=== PATIENT | female | born 1970 | race Caucasian/White ===

== ENCOUNTER 2022-08-31 16:41 | Inpatient (IN) | payer OTHER ==
[2022-08-31] MEDS ORDERED: SODIUM CHLORIDE 1,000 ML IV STA (20:11)
[2022-08-31 21:40] LABS: BASO % 0.3 % (0-2.0); HEMATOCRIT 39.8 % (32.4-45.2); HEMOGLOBIN 13.4 GM/dL (10.7-15.3); LYMPH % 17.3 % (8-40); MCH 29.1 pg (25.7-33.7); MCHC 33.6 g/dl (32.0-36.0); MEAN CELL VOLUME 86.7 fl (80-96); MEAN PLT VOLUME 7.8 fl (7.5-11.1); MONO % 10.1 % (3.8-10.2); NEUT % 72.3 % (42.8-82.8); PLATELET COUNT 273 10^3/uL (134-434); RBC 4.59 M/mm3 (3.60-5.2); RDW 13.7 % (11.6-15.6); WHITE BLOOD COUNT 12.2 K/mm3 (4.0-10.0)
[2022-08-31 21:43] LABS: VENOUS BASE EXCESS -2.2 mmol/L (-2-2); VENOUS O2 SATURATION 92.5 % (70-80); VENOUS PCO2 33.7 mmHg (38-52); VENOUS PH 7.422 (7.310-7.410)
[2022-08-31 21:49] LABS: INR 1.24 (0.83-1.09); PROTHROMBIN TIME (PATIENT) 14.3 SEC (9.7-13.0)
[2022-08-31 21:52] LABS: ACTIVATED PTT 30.2 SECONDS (25.2-36.5)
[2022-08-31 22:01] LABS: CALCIUM 10.2 mg/dL (8.5-10.1)
[2022-08-31 22:02] LABS: ALBUMIN 4.3 g/dl (3.4-5.0); BLOOD UREA NITROGEN 31.7 mg/dL (7-18)
[2022-08-31 22:05] LABS: CREATININE 1.3 mg/dL (0.55-1.3)
[2022-08-31 22:06] LABS: BILIRUBIN,TOTAL 0.4 mg/dL (0.2-1); TOT PROT 8.4 g/dl (6.4-8.2)
[2022-08-31 22:22] LABS: EPI CELLS 25 /uL (0-25.1); HYALINE CASTS 1 /uL (0-3.1); PH,URINE 5.5 (5.0-8.0); URINE APPEARANCE CLEAR; URINE BACTERIA 112 /uL (0-1359); URINE BILIRUBIN NEGATIVE (NEGATIVE); URINE COLOR YELLOW; URINE GLUCOSE (UA) NEGATIVE (NEGATIVE); URINE KETONE TRACE (NEGATIVE); URINE LEUK ESTERASE TRACE (NEGATIVE); URINE NITRITE NEGATIVE (NEGATIVE); URINE PROTEIN 1+ (NEGATIVE); URINE RBC 15 /uL (0-23.9); URINE WBC 30 /uL (0-25.8)
[2022-09-01] MEDS ORDERED: SODIUM CHLORIDE 1,000 ML IV SCH (00:45)
[2022-09-01] MEDS: QUEtiapine FUMARATE 50 MG TABLET PO SCH ×3 (06:52→21:27)
[2022-09-01] MEDS: clonazePAM 0.25 MG ODT TABLETS SL SCH ×3 (06:52→21:26)
[2022-09-01] MEDS: CEFTRIAXONE 1 GM in DEXTROSE 5%-WATER - 50 ML IVPB SCH ×2 (08:17→09:58)
[2022-09-01 08:36] VITALS: BMI 30.4
[2022-09-01 09:12] LABS: BASO % 0.3 % (0-2.0); EOS % 0.3 % (0-4.5); HEMATOCRIT 37.5 % (32.4-45.2); LYMPH % 23.8 % (8-40); MCH 28.1 pg (25.7-33.7); MEAN CELL VOLUME 87.6 fl (80-96); MEAN PLT VOLUME 8.3 fl (7.5-11.1); MONO % 11.6 % (3.8-10.2); PLATELET COUNT 253 10^3/uL (134-434); RBC 4.28 M/mm3 (3.60-5.2); RDW 14.3 % (11.6-15.6); WHITE BLOOD COUNT 11.2 K/mm3 (4.0-10.0)
[2022-09-01 09:31] LABS: CALCIUM 9.2 mg/dL (8.5-10.1)
[2022-09-01 09:34] LABS: BLOOD UREA NITROGEN 28.2 mg/dL (7-18)
[2022-09-01 09:35] LABS: MAGNESIUM 2.3 mg/dL (1.8-2.4)
[2022-09-01 09:37] LABS: PHOSPHOROUS 3.4 mg/dL (2.5-4.9)
[2022-09-01] MEDS: LITHIUM CARBONATE 450 MG TABLET.ER PO SCH (09:54)
[2022-09-01] MEDS: DIVALPROEX NA *ER* EXTEND REL 500 MG TABLET.SA (FP) PO SCH ×2 (09:54→15:03)
[2022-09-01] MEDS: MULTIVITAMINS (DAILY MVI) TABLET (FP) PO SCH (09:54)
[2022-09-01] MEDS: ENOXAPARIN NA (PORCINE) 40 MG/0.4 ML DISP.SYRIN SQ SCH (09:58)
[2022-09-01] MEDS ORDERED: LEVOTHYROXINE NA 100 MCG TABLET (FP) PO SCH (10:00)
[2022-09-01] MEDS: SODIUM CHLORIDE 1,000 ML IV SCH (12:36)
[2022-09-01] MEDS ORDERED: DOCUSATE SODIUM 100 MG CAPSULE (FP) PO ONE (14:38)
[2022-09-01] MEDS: SENNOSIDES 8.6MG TABLET (FP) PO SCH (21:26)
[2022-09-01] MEDS ORDERED: QUEtiapine FUMARATE 50 MG TABLET PO SCH (22:00)
[2022-09-02] MEDS: clonazePAM 0.25 MG ODT TABLETS SL SCH ×3 (05:15→21:59)
[2022-09-02] MEDS: QUEtiapine FUMARATE 50 MG TABLET PO SCH ×3 (05:16→21:59)
[2022-09-02 09:25] LABS: BASO % 0.6 % (0-2.0); EOS % 1.2 % (0-4.5); HEMATOCRIT 36.3 % (32.4-45.2); LYMPH % 31.6 % (8-40); MCH 29.2 pg (25.7-33.7); MCHC 33.2 g/dl (32.0-36.0); MONO % 8.2 % (3.8-10.2); NEUT % 58.4 % (42.8-82.8); PLATELET COUNT 238 10^3/uL (134-434); RBC 4.12 M/mm3 (3.60-5.2); RDW 13.7 % (11.6-15.6); WHITE BLOOD COUNT 9.3 K/mm3 (4.0-10.0)
[2022-09-02] MEDS: LEVOTHYROXINE NA 100 MCG TABLET (FP) PO SCH (09:43)
[2022-09-02] MEDS: ENOXAPARIN NA (PORCINE) 40 MG/0.4 ML DISP.SYRIN SQ SCH (09:43)
[2022-09-02] MEDS: DIVALPROEX NA *ER* EXTEND REL 500 MG TABLET.SA (FP) PO SCH (09:43)
[2022-09-02] MEDS: MULTIVITAMINS (DAILY MVI) TABLET (FP) PO SCH (09:43)
[2022-09-02] MEDS: LITHIUM CARBONATE 450 MG TABLET.ER PO SCH (09:44)
[2022-09-02 09:53] LABS: ALBUMIN 3.5 g/dl (3.4-5.0); BLOOD UREA NITROGEN 23.6 mg/dL (7-18); CALCIUM 9.2 mg/dL (8.5-10.1); MAGNESIUM 2.2 mg/dL (1.8-2.4)
[2022-09-02 09:56] LABS: CREATININE 0.9 mg/dL (0.55-1.3); PHOSPHOROUS 3.2 mg/dL (2.5-4.9)
[2022-09-02 09:58] LABS: BILIRUBIN,TOTAL 0.3 mg/dL (0.2-1)
[2022-09-02] MEDS: SODIUM CHLORIDE 1,000 ML IV SCH (12:16)
[2022-09-02] MEDS: CEFTRIAXONE 1 GM in DEXTROSE 5%-WATER - 50 ML IVPB SCH (12:17)
[2022-09-02] MEDS: MOMETASONE FUROATE 15 GM TP SCH (16:46)
[2022-09-02] MEDS: PATIENT'S OWN MEDICATION (NON-FORMULARY) (Calcipotriene 0.005% Top Crm 60 GM Tube) TP SCH (16:46)
[2022-09-02] MEDS: SODIUM CHLORIDE 0.45% 1,000 ML IV SCH (19:09)
[2022-09-02] MEDS: SENNOSIDES 8.6MG TABLET (FP) PO SCH (21:59)
[2022-09-03] MEDS: clonazePAM 0.25 MG ODT TABLETS SL SCH ×3 (05:33→21:43)
[2022-09-03] MEDS: QUEtiapine FUMARATE 50 MG TABLET PO SCH ×3 (05:34→21:44)
[2022-09-03] MEDS: LEVOTHYROXINE NA 100 MCG TABLET (FP) PO SCH (06:31)
[2022-09-03 09:26] LABS: BASO % 0.3 % (0-2.0); EOS % 1.4 % (0-4.5); HEMATOCRIT 37.2 % (32.4-45.2); HEMOGLOBIN 12.1 GM/dL (10.7-15.3); LYMPH % 28.5 % (8-40); MCH 28.4 pg (25.7-33.7); MCHC 32.5 g/dl (32.0-36.0); MEAN CELL VOLUME 87.5 fl (80-96); MONO % 9.2 % (3.8-10.2); NEUT % 60.6 % (42.8-82.8); PLATELET COUNT 258 10^3/uL (134-434); RBC 4.25 M/mm3 (3.60-5.2); RDW 13.6 % (11.6-15.6); WHITE BLOOD COUNT 8.3 K/mm3 (4.0-10.0)
[2022-09-03 09:52] LABS: ALBUMIN 3.3 g/dl (3.4-5.0); BLOOD UREA NITROGEN 18.4 mg/dL (7-18); CALCIUM 8.9 mg/dL (8.5-10.1); MAGNESIUM 2.1 mg/dL (1.8-2.4)
[2022-09-03 09:55] LABS: CREATININE 0.9 mg/dL (0.55-1.3); PHOSPHOROUS 4.5 mg/dL (2.5-4.9)
[2022-09-03 09:57] LABS: BILIRUBIN,TOTAL 0.4 mg/dL (0.2-1); TOT PROT 6.9 g/dl (6.4-8.2)
[2022-09-03] MEDS: CEFTRIAXONE 1 GM in DEXTROSE 5%-WATER - 50 ML IVPB SCH (10:02)
[2022-09-03] MEDS: DIVALPROEX NA *ER* EXTEND REL 500 MG TABLET.SA (FP) PO SCH ×2 (10:02→12:12)
[2022-09-03] MEDS: ENOXAPARIN NA (PORCINE) 40 MG/0.4 ML DISP.SYRIN SQ SCH ×2 (10:02→12:13)
[2022-09-03] MEDS: MULTIVITAMINS (DAILY MVI) TABLET (FP) PO SCH (10:02)
[2022-09-03] MEDS: LITHIUM CARBONATE 450 MG TABLET.ER PO SCH ×2 (10:03→12:13)
[2022-09-03] MEDS: SODIUM CHLORIDE 0.45% 1,000 ML IV SCH (19:00)
[2022-09-03] MEDS: SENNOSIDES 8.6MG TABLET (FP) PO SCH (21:43)
[2022-09-04] MEDS: clonazePAM 0.25 MG ODT TABLETS SL SCH ×3 (05:59→21:59)
[2022-09-04] MEDS: QUEtiapine FUMARATE 50 MG TABLET PO SCH ×3 (06:00→22:00)
[2022-09-04] MEDS: LEVOTHYROXINE NA 100 MCG TABLET (FP) PO SCH (06:00)
[2022-09-04 07:39] LABS: CALCIUM 9.3 mg/dL (8.5-10.1)
[2022-09-04 07:40] LABS: ALBUMIN 3.5 g/dl (3.4-5.0); BLOOD UREA NITROGEN 20.9 mg/dL (7-18); MAGNESIUM 2.3 mg/dL (1.8-2.4)
[2022-09-04 07:42] LABS: BASO % 0.3 % (0-2.0); CREATININE 0.9 mg/dL (0.55-1.3); EOS % 1.7 % (0-4.5); HEMATOCRIT 37.9 % (32.4-45.2); HEMOGLOBIN 12.5 GM/dL (10.7-15.3); LYMPH % 22.6 % (8-40); MCH 28.7 pg (25.7-33.7); MCHC 33.1 g/dl (32.0-36.0); MEAN CELL VOLUME 86.8 fl (80-96); MEAN PLT VOLUME 8.1 fl (7.5-11.1); MONO % 8.4 % (3.8-10.2); PHOSPHOROUS 4.6 mg/dL (2.5-4.9); PLATELET COUNT 275 10^3/uL (134-434); RBC 4.37 M/mm3 (3.60-5.2); RDW 13.9 % (11.6-15.6); WHITE BLOOD COUNT 8.3 K/mm3 (4.0-10.0)
[2022-09-04 07:44] LABS: TOT PROT 7.4 g/dl (6.4-8.2)
[2022-09-04 07:45] LABS: BILIRUBIN,TOTAL 0.3 mg/dL (0.2-1)
[2022-09-04] MEDS: ENOXAPARIN NA (PORCINE) 40 MG/0.4 ML DISP.SYRIN SQ SCH (10:05)
[2022-09-04] MEDS: DIVALPROEX NA *ER* EXTEND REL 500 MG TABLET.SA (FP) PO SCH (10:05)
[2022-09-04] MEDS: LITHIUM CARBONATE 450 MG TABLET.ER PO SCH (10:05)
[2022-09-04] MEDS: MULTIVITAMINS (DAILY MVI) TABLET (FP) PO SCH (10:06)
[2022-09-04] MEDS: SENNOSIDES 8.6MG TABLET (FP) PO SCH (21:59)
[2022-09-04] MEDS: SODIUM CHLORIDE 0.45% 1,000 ML IV SCH (21:59)
[2022-09-05] MEDS: QUEtiapine FUMARATE 50 MG TABLET PO SCH ×4 (05:45→22:15)
[2022-09-05] MEDS: clonazePAM 0.25 MG ODT TABLETS SL SCH ×4 (05:49→22:15)
[2022-09-05] MEDS: LEVOTHYROXINE NA 100 MCG TABLET (FP) PO SCH (06:00)
[2022-09-05 08:48] LABS: BASO % 0.5 % (0-2.0); EOS % 2.1 % (0-4.5); HEMATOCRIT 37.8 % (32.4-45.2); HEMOGLOBIN 12.6 GM/dL (10.7-15.3); LYMPH % 21.4 % (8-40); MCH 29.3 pg (25.7-33.7); MCHC 33.5 g/dl (32.0-36.0); MEAN CELL VOLUME 87.5 fl (80-96); MEAN PLT VOLUME 8.1 fl (7.5-11.1); MONO % 7.8 % (3.8-10.2); NEUT % 68.2 % (42.8-82.8); PLATELET COUNT 219 10^3/uL (134-434); RBC 4.32 M/mm3 (3.60-5.2); RDW 13.3 % (11.6-15.6); WHITE BLOOD COUNT 8.5 K/mm3 (4.0-10.0)
[2022-09-05 09:10] LABS: ALBUMIN 3.6 g/dl (3.4-5.0); BLOOD UREA NITROGEN 24.6 mg/dL (7-18); CALCIUM 9.2 mg/dL (8.5-10.1); MAGNESIUM 2.3 mg/dL (1.8-2.4)
[2022-09-05 09:13] LABS: CREATININE 0.8 mg/dL (0.55-1.3); PHOSPHOROUS 4.2 mg/dL (2.5-4.9)
[2022-09-05 09:15] LABS: BILIRUBIN,TOTAL 0.2 mg/dL (0.2-1); TOT PROT 7.6 g/dl (6.4-8.2)
[2022-09-05] MEDS: DIVALPROEX NA *ER* EXTEND REL 500 MG TABLET.SA (FP) PO SCH ×3 (09:38→22:15)
[2022-09-05] MEDS: LITHIUM CARBONATE 450 MG TABLET.ER PO SCH (09:38)
[2022-09-05] MEDS: MULTIVITAMINS (DAILY MVI) TABLET (FP) PO SCH (09:38)
[2022-09-05] MEDS: ENOXAPARIN NA (PORCINE) 40 MG/0.4 ML DISP.SYRIN SQ SCH (09:39)
[2022-09-05] MEDS: SENNOSIDES 8.6MG TABLET (FP) PO SCH (21:45)
[2022-09-06] MEDS: LEVOTHYROXINE NA 100 MCG TABLET (FP) PO SCH (06:21)
[2022-09-06] MEDS: QUEtiapine FUMARATE 50 MG TABLET PO SCH ×3 (06:21→21:26)
[2022-09-06] MEDS: clonazePAM 0.25 MG ODT TABLETS SL SCH ×4 (06:21→21:29)
[2022-09-06] MEDS: ENOXAPARIN NA (PORCINE) 40 MG/0.4 ML DISP.SYRIN SQ SCH (09:43)
[2022-09-06] MEDS: LITHIUM CARBONATE 450 MG TABLET.ER PO SCH (10:57)
[2022-09-06] MEDS: MULTIVITAMINS (DAILY MVI) TABLET (FP) PO SCH (10:57)
[2022-09-06] MEDS ORDERED: clonazePAM 0.25 MG ODT TABLETS SL SCH (12:00)
[2022-09-06] MEDS: SENNOSIDES 8.6MG TABLET (FP) PO SCH (21:25)
[2022-09-06] MEDS ORDERED: DIVALPROEX NA *ER* EXTEND REL 500 MG TABLET.SA (FP) PO SCH (22:00)
[2022-09-07] MEDS: QUEtiapine FUMARATE 50 MG TABLET PO SCH ×2 (07:04→14:53)
[2022-09-07] MEDS: LEVOTHYROXINE NA 100 MCG TABLET (FP) PO SCH (07:04)
[2022-09-07] MEDS: clonazePAM 0.25 MG ODT TABLETS SL SCH ×3 (07:04→14:54)
[2022-09-07] MEDS: ENOXAPARIN NA (PORCINE) 40 MG/0.4 ML DISP.SYRIN SQ SCH (09:15)
[2022-09-07] MEDS: MULTIVITAMINS (DAILY MVI) TABLET (FP) PO SCH (09:15)
[2022-09-07] MEDS: LITHIUM CARBONATE 450 MG TABLET.ER PO SCH (09:15)
[2022-09-07 15:20] VITALS: BP 116/75; PULSE 100; RESP 18; TEMP 97.7
== END 2022-09-07 16:30 | disposition home or self-care (01) | DRG 640 ==
LOC: JER 16:41 → JERBED 22:06 → J7W 09-01 03:13
PROVIDERS: ADMIT Internal Medicine; ATTEND Internal Medicine
DX: E86.0 Dehydration (principal); G93.41 Metabolic encephalopathy; N17.9 Acute kidney failure, unspecified; N39.0 Urinary tract infection, site not specified; E87.0 Hyperosmolality and hypernatremia; E03.9 Hypothyroidism, unspecified; L40.9 Psoriasis, unspecified; R62.7 Adult failure to thrive; F31.9 Bipolar disorder, unspecified; Z87.440 Personal history of urinary (tract) infections; E83.52 Hypercalcemia; R94.31 Abnormal electrocardiogram [ECG] [EKG]; R33.9 Retention of urine, unspecified; D25.9 Leiomyoma of uterus, unspecified; F79 Unspecified intellectual disabilities
CPT/HCPCS: 0241U-QW; 36415; 71045-TC-FY; 74176-TC; 80048; 80053; 80178; 81003; 82803; 83605; 83735; 84100; 85025; 85610; 85730; 86850; 86900; 86901; 87040; 87086; 87633; 93005; 93010; 99285-25

== ENCOUNTER 2022-09-13 11:26 | Inpatient (IN) | payer OTHER ==
[2022-09-13 14:00] LABS: BASO % 0.2 % (0-2.0); EOS % 2.1 % (0-4.5); HEMATOCRIT 37.5 % (32.4-45.2); HEMOGLOBIN 12.7 GM/dL (10.7-15.3); LYMPH % 30.6 % (8-40); MCH 29.1 pg (25.7-33.7); MCHC 33.8 g/dl (32.0-36.0); MEAN CELL VOLUME 86.2 fl (80-96); MEAN PLT VOLUME 8.3 fl (7.5-11.1); MONO % 8.3 % (3.8-10.2); NEUT % 58.8 % (42.8-82.8); PLATELET COUNT 256 10^3/uL (134-434); RBC 4.35 M/mm3 (3.60-5.2); RDW 13.5 % (11.6-15.6); WHITE BLOOD COUNT 10.4 K/mm3 (4.0-10.0)
[2022-09-13 14:10] LABS: INR 1.21 (0.83-1.09)
[2022-09-13 14:20] LABS: BLOOD UREA NITROGEN 14.8 mg/dL (7-18); CALCIUM 9.3 mg/dL (8.5-10.1); MAGNESIUM 2.3 mg/dL (1.8-2.4)
[2022-09-13 14:20] LABS: EPI CELLS 8 /uL (0-25.1); HYALINE CASTS 2 /uL (0-3.1); PH,URINE 5.5 (5.0-8.0); URINE APPEARANCE CLEAR; URINE BACTERIA 2 /uL (0-1359); URINE BILIRUBIN NEGATIVE (NEGATIVE); URINE COLOR YELLOW; URINE GLUCOSE (UA) NEGATIVE (NEGATIVE); URINE KETONE NEGATIVE (NEGATIVE); URINE LEUK ESTERASE NEGATIVE (NEGATIVE); URINE NITRITE NEGATIVE (NEGATIVE); URINE PROTEIN 1+ (NEGATIVE); URINE RBC 33 /uL (0-23.9); URINE WBC 12 /uL (0-25.8)
[2022-09-13 14:21] LABS: ALBUMIN 3.9 g/dl (3.4-5.0)
[2022-09-13 14:23] LABS: CREATININE 0.9 mg/dL (0.55-1.3); PHOSPHOROUS 3.9 mg/dL (2.5-4.9)
[2022-09-13 14:25] LABS: BILIRUBIN,TOTAL 0.4 mg/dL (0.2-1); TOT PROT 7.9 g/dl (6.4-8.2)
[2022-09-13] MEDS ORDERED: ENOXAPARIN NA (PORCINE) 60 MG/0.6 ML DISP.SYRIN SQ ONE ×2 (19:30→20:11)
[2022-09-14] MEDS ORDERED: FAMOTIDINE 20 MG TABLET PO SCH (00:45)
[2022-09-14] MEDS: FAMOTIDINE 20 MG TABLET PO SCH ×3 (01:44→23:30)
[2022-09-14] MEDS ORDERED: LEVOTHYROXINE NA 50 MCG TABLET (FP) ONE (05:12)
[2022-09-14] MEDS ORDERED: SERTRALINE HCL 50 MG TABLET (FP) ONE (05:12)
[2022-09-14] MEDS: QUEtiapine FUMARATE 50 MG TABLET PO SCH ×4 (05:30→23:30)
[2022-09-14] MEDS: LEVOTHYROXINE NA 100 MCG TABLET (FP) PO SCH (05:30)
[2022-09-14] MEDS: POLYETHYLENE GLYCOL (HEALTHYLAX) 3350 17 GM PACKET PO SCH ×3 (05:30→23:29)
[2022-09-14 08:20] LABS: HEMATOCRIT 37.1 % (32.4-45.2); HEMOGLOBIN 12.5 GM/dL (10.7-15.3); MCHC 33.7 g/dl (32.0-36.0); MEAN CELL VOLUME 85.9 fl (80-96); MEAN PLT VOLUME 8.4 fl (7.5-11.1); PLATELET COUNT 276 10^3/uL (134-434); RBC 4.32 M/mm3 (3.60-5.2); RDW 13.1 % (11.6-15.6); WHITE BLOOD COUNT 7.4 K/mm3 (4.0-10.0)
[2022-09-14 08:28] LABS: ALBUMIN 3.8 g/dl (3.4-5.0); CALCIUM 9.4 mg/dL (8.5-10.1)
[2022-09-14 08:29] LABS: BLOOD UREA NITROGEN 13.5 mg/dL (7-18); MAGNESIUM 2.4 mg/dL (1.8-2.4)
[2022-09-14 08:31] LABS: CREATININE 0.8 mg/dL (0.55-1.3)
[2022-09-14 08:32] LABS: PHOSPHOROUS 4.4 mg/dL (2.5-4.9)
[2022-09-14 08:33] LABS: BILIRUBIN,TOTAL 0.5 mg/dL (0.2-1); TOT PROT 7.6 g/dl (6.4-8.2)
[2022-09-14] MEDS ORDERED: PANTOPRAZOLE 20 MG TABLET PO ONE (08:45)
[2022-09-14] MEDS ORDERED: ENOXAPARIN NA (PORCINE) 40 MG/0.4 ML DISP.SYRIN SQ ONE (08:46)
[2022-09-14] MEDS ORDERED: FAMOTIDINE 20 MG TABLET ONE (08:46)
[2022-09-14] MEDS: LITHIUM CARBONATE 450 MG TABLET.ER PO SCH (09:48)
[2022-09-14] MEDS: MULTIVITAMINS (DAILY MVI) TABLET (FP) PO SCH (09:48)
[2022-09-14] MEDS: PANTOPRAZOLE 20 MG TABLET PO SCH (09:48)
[2022-09-14] MEDS ORDERED: ENOXAPARIN NA (PORCINE) 40 MG/0.4 ML DISP.SYRIN SQ SCH (10:00)
[2022-09-14 17:31] VITALS: BMI 29.2
[2022-09-14] MEDS: DIVALPROEX NA *ER* EXTEND REL 500 MG TABLET.SA (FP) PO SCH (23:29)
[2022-09-14] MEDS: ENOXAPARIN NA (PORCINE) 80 MG/0.8 ML DISP.SYRIN SQ SCH (23:29)
[2022-09-15] MEDS: clonazePAM 0.25 MG ODT TABLETS SL SCH (02:20)
[2022-09-15] MEDS: POLYETHYLENE GLYCOL (HEALTHYLAX) 3350 17 GM PACKET PO SCH ×3 (06:55→22:00)
[2022-09-15] MEDS: QUEtiapine FUMARATE 50 MG TABLET PO SCH ×3 (06:55→22:00)
[2022-09-15] MEDS: LEVOTHYROXINE NA 100 MCG TABLET (FP) PO SCH (06:55)
[2022-09-15 08:56] LABS: BASO % 0.5 % (0-2.0); EOS % 2.3 % (0-4.5); HEMATOCRIT 36.9 % (32.4-45.2); HEMOGLOBIN 12.5 GM/dL (10.7-15.3); LYMPH % 23.5 % (8-40); MCHC 33.9 g/dl (32.0-36.0); MEAN CELL VOLUME 85.5 fl (80-96); MEAN PLT VOLUME 8.3 fl (7.5-11.1); MONO % 8.5 % (3.8-10.2); NEUT % 65.2 % (42.8-82.8); PLATELET COUNT 298 10^3/uL (134-434); RBC 4.32 M/mm3 (3.60-5.2); RDW 13.3 % (11.6-15.6); WHITE BLOOD COUNT 5.9 K/mm3 (4.0-10.0)
[2022-09-15] MEDS: LITHIUM CARBONATE 450 MG TABLET.ER PO SCH (09:33)
[2022-09-15] MEDS: FAMOTIDINE 20 MG TABLET PO SCH ×2 (09:33→22:00)
[2022-09-15] MEDS: MULTIVITAMINS (DAILY MVI) TABLET (FP) PO SCH (09:49)
[2022-09-15] MEDS: PANTOPRAZOLE 20 MG TABLET PO SCH (09:49)
[2022-09-15 09:52] LABS: ALBUMIN 3.6 g/dl (3.4-5.0); BLOOD UREA NITROGEN 13.8 mg/dL (7-18); CALCIUM 9.3 mg/dL (8.5-10.1); MAGNESIUM 2.1 mg/dL (1.8-2.4)
[2022-09-15 09:55] LABS: CREATININE 0.7 mg/dL (0.55-1.3); PHOSPHOROUS 4.2 mg/dL (2.5-4.9)
[2022-09-15 09:57] LABS: BILIRUBIN,TOTAL 0.4 mg/dL (0.2-1); TOT PROT 7.3 g/dl (6.4-8.2)
[2022-09-15] MEDS: ENOXAPARIN NA (PORCINE) 80 MG/0.8 ML DISP.SYRIN SQ SCH ×2 (10:25→22:30)
[2022-09-15] MEDS ORDERED: LORazepam 2 MG TABLET PO ONE (13:59)
[2022-09-15] MEDS ORDERED: LORazepam 2 MG/ML SDV VIAL IVPUSH ONE (14:12)
[2022-09-15] MEDS: AMINO ACIDS 4.25%/D5W 1,000 ML IV SCH ×2 (16:43→19:15)
[2022-09-15] MEDS ORDERED: LORazepam 2 MG/ML SDV VIAL IM ONE (18:12)
[2022-09-15] MEDS ORDERED: CLOBETASOL PROPIONATE TP SCH (19:30)
[2022-09-15] MEDS ORDERED: PATIENT'S OWN MEDICATION (NON-FORMULARY) (Calcipotriene 0.005% Top Crm 60 GM Tube) TP SCH (22:00)
[2022-09-15] MEDS: DIVALPROEX NA *ER* EXTEND REL 500 MG TABLET.SA (FP) PO SCH (22:00)
[2022-09-15] MEDS ORDERED: MOMETASONE FUROATE 15 GM TP SCH (22:00)
[2022-09-16] MEDS: AMINO ACIDS 4.25%/D5W 1,000 ML IV SCH ×2 (02:00→13:20)
[2022-09-16] MEDS: LEVOTHYROXINE NA 100 MCG TABLET (FP) PO SCH (06:53)
[2022-09-16] MEDS: POLYETHYLENE GLYCOL (HEALTHYLAX) 3350 17 GM PACKET PO SCH ×3 (06:53→21:53)
[2022-09-16] MEDS: QUEtiapine FUMARATE 50 MG TABLET PO SCH ×3 (06:53→21:54)
[2022-09-16] MEDS: clonazePAM 0.25 MG ODT TABLETS SL SCH ×4 (06:53→21:54)
[2022-09-16] MEDS: ENOXAPARIN NA (PORCINE) 80 MG/0.8 ML DISP.SYRIN SQ SCH ×3 (09:56→21:50)
[2022-09-16] MEDS: LITHIUM CARBONATE 450 MG TABLET.ER PO SCH ×2 (10:01→10:06)
[2022-09-16] MEDS: NYSTATIN POWDER 100,000 UNITS/GM - 15 GM TOPICAL POWDER TP SCH ×3 (10:02→22:52)
[2022-09-16] MEDS: MULTIVITAMINS (DAILY MVI) TABLET (FP) PO SCH ×2 (10:02→10:06)
[2022-09-16] MEDS: FAMOTIDINE 20 MG TABLET PO SCH ×3 (10:02→21:52)
[2022-09-16] MEDS: PANTOPRAZOLE 20 MG TABLET PO SCH ×2 (10:02→10:06)
[2022-09-16] MEDS ORDERED: LORazepam 2 MG/ML SDV VIAL IM SCH (10:45)
[2022-09-16 15:49] LABS: BASO % 0.3 % (0-2.0); EOS % 2.1 % (0-4.5); HEMATOCRIT 38.8 % (32.4-45.2); HEMOGLOBIN 13.2 GM/dL (10.7-15.3); LYMPH % 31.2 % (8-40); MCH 28.9 pg (25.7-33.7); MEAN CELL VOLUME 84.9 fl (80-96); MEAN PLT VOLUME 8.4 fl (7.5-11.1); MONO % 7.7 % (3.8-10.2); NEUT % 58.7 % (42.8-82.8); PLATELET COUNT 323 10^3/uL (134-434); RBC 4.58 M/mm3 (3.60-5.2); RDW 13.3 % (11.6-15.6); WHITE BLOOD COUNT 8.8 K/mm3 (4.0-10.0)
[2022-09-16] MEDS ORDERED: clonazePAM 0.25 MG ODT TABLETS SL SCH (16:00)
[2022-09-16 16:14] LABS: BLOOD UREA NITROGEN 16.6 mg/dL (7-18); MAGNESIUM 1.8 mg/dL (1.8-2.4)
[2022-09-16 16:16] LABS: CREATININE 0.9 mg/dL (0.55-1.3)
[2022-09-16 16:17] LABS: BILIRUBIN,TOTAL 0.6 mg/dL (0.2-1); TOT PROT 7.9 g/dl (6.4-8.2)
[2022-09-16] MEDS ORDERED: KCL 10 MEQ IVPB 10 MEQ/100 ML INFUS.BAG IVPB SCH (16:45)
[2022-09-16] MEDS: POTASSIUM CHLORIDE 30 MEQ in AMINO ACIDS 4.25%/D5W 1,000 ML IV SCH (18:40)
[2022-09-16] MEDS ORDERED: CLOBETASOL PROPIONATE TP SCH (19:25)
[2022-09-16] MEDS: DIVALPROEX NA *ER* EXTEND REL 500 MG TABLET.SA (FP) PO SCH (21:53)
[2022-09-16] MEDS ORDERED: MOMETASONE FUROATE TP SCH (22:00)
[2022-09-16] MEDS ORDERED: CALCIPOTRIENE 0.005% TP SCH (22:00)
[2022-09-17] MEDS: POLYETHYLENE GLYCOL (HEALTHYLAX) 3350 17 GM PACKET PO SCH ×3 (06:06→22:17)
[2022-09-17] MEDS: POTASSIUM CHLORIDE 30 MEQ in AMINO ACIDS 4.25%/D5W 1,000 ML IV SCH ×2 (06:07→18:28)
[2022-09-17] MEDS: clonazePAM 0.25 MG ODT TABLETS SL SCH ×4 (06:07→22:15)
[2022-09-17] MEDS: QUEtiapine FUMARATE 50 MG TABLET PO SCH ×3 (06:07→22:15)
[2022-09-17] MEDS: LEVOTHYROXINE NA 100 MCG TABLET (FP) PO SCH (06:08)
[2022-09-17 08:24] LABS: ALBUMIN 3.6 g/dl (3.4-5.0); BLOOD UREA NITROGEN 17.1 mg/dL (7-18); MAGNESIUM 2.1 mg/dL (1.8-2.4)
[2022-09-17 08:27] LABS: CREATININE 0.7 mg/dL (0.55-1.3); PHOSPHOROUS 3.2 mg/dL (2.5-4.9)
[2022-09-17 08:29] LABS: BILIRUBIN,TOTAL 0.4 mg/dL (0.2-1); TOT PROT 7.2 g/dl (6.4-8.2)
[2022-09-17 08:33] LABS: BASO % 0.5 % (0-2.0); EOS % 2.5 % (0-4.5); HEMATOCRIT 40.8 % (32.4-45.2); HEMOGLOBIN 13.3 GM/dL (10.7-15.3); LYMPH % 23.3 % (8-40); MCH 28.3 pg (25.7-33.7); MCHC 32.5 g/dl (32.0-36.0); MEAN CELL VOLUME 86.9 fl (80-96); MEAN PLT VOLUME 8.4 fl (7.5-11.1); MONO % 8.7 % (3.8-10.2); PLATELET COUNT 297 10^3/uL (134-434); RBC 4.69 M/mm3 (3.60-5.2); RDW 13.7 % (11.6-15.6); WHITE BLOOD COUNT 6.6 K/mm3 (4.0-10.0)
[2022-09-17] MEDS: PANTOPRAZOLE 20 MG TABLET PO SCH (10:46)
[2022-09-17] MEDS: ENOXAPARIN NA (PORCINE) 80 MG/0.8 ML DISP.SYRIN SQ SCH ×2 (10:46→22:16)
[2022-09-17] MEDS: MULTIVITAMINS (DAILY MVI) TABLET (FP) PO SCH (10:46)
[2022-09-17] MEDS: FAMOTIDINE 20 MG TABLET PO SCH ×2 (10:46→22:15)
[2022-09-17] MEDS: LITHIUM CARBONATE 450 MG TABLET.ER PO SCH (10:47)
[2022-09-17] MEDS: NYSTATIN POWDER 100,000 UNITS/GM - 15 GM TOPICAL POWDER TP SCH ×2 (10:54→22:16)
[2022-09-17] MEDS: DIVALPROEX NA *ER* EXTEND REL 500 MG TABLET.SA (FP) PO SCH (23:14)
[2022-09-18] MEDS: clonazePAM 0.25 MG ODT TABLETS SL SCH ×4 (06:40→22:42)
[2022-09-18] MEDS: QUEtiapine FUMARATE 50 MG TABLET PO SCH ×3 (06:40→22:42)
[2022-09-18] MEDS: POLYETHYLENE GLYCOL (HEALTHYLAX) 3350 17 GM PACKET PO SCH ×3 (06:41→23:09)
[2022-09-18] MEDS ORDERED: LORazepam 2 MG/ML SDV VIAL IVPUSH PRN (07:48)
[2022-09-18 08:44] LABS: ALBUMIN 3.7 g/dl (3.4-5.0); BLOOD UREA NITROGEN 19.9 mg/dL (7-18); CALCIUM 9.2 mg/dL (8.5-10.1); MAGNESIUM 2.2 mg/dL (1.8-2.4)
[2022-09-18 08:47] LABS: BILIRUBIN,TOTAL 0.2 mg/dL (0.2-1); CREATININE 0.8 mg/dL (0.55-1.3); PHOSPHOROUS 3.2 mg/dL (2.5-4.9)
[2022-09-18 08:48] LABS: TOT PROT 7.4 g/dl (6.4-8.2)
[2022-09-18] MEDS: NYSTATIN POWDER 100,000 UNITS/GM - 15 GM TOPICAL POWDER TP SCH ×2 (10:00→23:09)
[2022-09-18] MEDS: POTASSIUM CHLORIDE 30 MEQ in AMINO ACIDS 4.25%/D5W 1,000 ML IV SCH ×2 (10:02→17:19)
[2022-09-18] MEDS: FAMOTIDINE 20 MG TABLET PO SCH ×2 (10:03→22:42)
[2022-09-18] MEDS: MULTIVITAMINS (DAILY MVI) TABLET (FP) PO SCH (10:03)
[2022-09-18] MEDS: PANTOPRAZOLE 20 MG TABLET PO SCH (10:03)
[2022-09-18] MEDS: ENOXAPARIN NA (PORCINE) 80 MG/0.8 ML DISP.SYRIN SQ SCH ×2 (10:03→22:42)
[2022-09-18] MEDS: LITHIUM CARBONATE 450 MG TABLET.ER PO SCH (10:04)
[2022-09-18] MEDS: DIVALPROEX NA *ER* EXTEND REL 500 MG TABLET.SA (FP) PO SCH (22:43)
[2022-09-19] MEDS: POTASSIUM CHLORIDE 30 MEQ in AMINO ACIDS 4.25%/D5W 1,000 ML IV SCH ×3 (02:00→14:32)
[2022-09-19] MEDS: clonazePAM 0.25 MG ODT TABLETS SL SCH ×4 (06:55→21:53)
[2022-09-19] MEDS: POLYETHYLENE GLYCOL (HEALTHYLAX) 3350 17 GM PACKET PO SCH ×3 (06:56→21:53)
[2022-09-19] MEDS: LEVOTHYROXINE NA 100 MCG TABLET (FP) PO SCH (06:56)
[2022-09-19] MEDS: QUEtiapine FUMARATE 50 MG TABLET PO SCH ×3 (06:56→21:54)
[2022-09-19 07:49] LABS: ALBUMIN 3.4 g/dl (3.4-5.0); BLOOD UREA NITROGEN 18.5 mg/dL (7-18); CALCIUM 9.2 mg/dL (8.5-10.1)
[2022-09-19 07:50] LABS: MAGNESIUM 2.1 mg/dL (1.8-2.4)
[2022-09-19 07:52] LABS: CREATININE 0.8 mg/dL (0.55-1.3); PHOSPHOROUS 3.4 mg/dL (2.5-4.9)
[2022-09-19 07:53] LABS: BILIRUBIN,TOTAL 0.2 mg/dL (0.2-1)
[2022-09-19 07:54] LABS: TOT PROT 7.3 g/dl (6.4-8.2)
[2022-09-19] MEDS: ENOXAPARIN NA (PORCINE) 80 MG/0.8 ML DISP.SYRIN SQ SCH ×2 (09:06→21:54)
[2022-09-19] MEDS: NYSTATIN POWDER 100,000 UNITS/GM - 15 GM TOPICAL POWDER TP SCH ×2 (09:07→22:05)
[2022-09-19] MEDS: LITHIUM CARBONATE 450 MG TABLET.ER PO SCH ×2 (09:13→09:32)
[2022-09-19] MEDS: FAMOTIDINE 20 MG TABLET PO SCH ×3 (09:13→21:54)
[2022-09-19] MEDS: MULTIVITAMINS (DAILY MVI) TABLET (FP) PO SCH ×2 (09:14→09:32)
[2022-09-19] MEDS: PANTOPRAZOLE 20 MG TABLET PO SCH ×2 (09:14→09:32)
[2022-09-19] MEDS: DRONABINOL 2.5 MG CAPSULE PO SCH (17:09)
[2022-09-19] MEDS: DIVALPROEX NA *ER* EXTEND REL 500 MG TABLET.SA (FP) PO SCH (21:53)
[2022-09-20] MEDS: QUEtiapine FUMARATE 50 MG TABLET PO SCH ×3 (06:10→22:23)
[2022-09-20] MEDS: clonazePAM 0.25 MG ODT TABLETS SL SCH ×4 (06:10→22:22)
[2022-09-20] MEDS: LEVOTHYROXINE NA 100 MCG TABLET (FP) PO SCH (06:10)
[2022-09-20] MEDS: POLYETHYLENE GLYCOL (HEALTHYLAX) 3350 17 GM PACKET PO SCH ×3 (06:11→21:09)
[2022-09-20 08:24] LABS: BASO % 0.4 % (0-2.0); EOS % 5.2 % (0-4.5); HEMATOCRIT 39.2 % (32.4-45.2); HEMOGLOBIN 13.1 GM/dL (10.7-15.3); MCH 29.1 pg (25.7-33.7); MCHC 33.5 g/dl (32.0-36.0); MONO % 8.4 % (3.8-10.2); PLATELET COUNT 329 10^3/uL (134-434); RBC 4.51 M/mm3 (3.60-5.2); RDW 13.8 % (11.6-15.6); WHITE BLOOD COUNT 5.9 K/mm3 (4.0-10.0)
[2022-09-20 08:33] LABS: CALCIUM 9.4 mg/dL (8.5-10.1)
[2022-09-20 08:34] LABS: ALBUMIN 3.6 g/dl (3.4-5.0); BLOOD UREA NITROGEN 18.8 mg/dL (7-18); MAGNESIUM 2.1 mg/dL (1.8-2.4)
[2022-09-20 08:37] LABS: CREATININE 0.9 mg/dL (0.55-1.3); PHOSPHOROUS 4.5 mg/dL (2.5-4.9)
[2022-09-20 08:38] LABS: BILIRUBIN,TOTAL 0.3 mg/dL (0.2-1)
[2022-09-20 08:39] LABS: TOT PROT 7.5 g/dl (6.4-8.2)
[2022-09-20] MEDS: MULTIVITAMINS (DAILY MVI) TABLET (FP) PO SCH (10:13)
[2022-09-20] MEDS: PANTOPRAZOLE 20 MG TABLET PO SCH (10:13)
[2022-09-20] MEDS: ENOXAPARIN NA (PORCINE) 80 MG/0.8 ML DISP.SYRIN SQ SCH ×2 (10:13→22:23)
[2022-09-20] MEDS: NYSTATIN POWDER 100,000 UNITS/GM - 15 GM TOPICAL POWDER TP SCH ×2 (10:14→22:23)
[2022-09-20] MEDS: LITHIUM CARBONATE 450 MG TABLET.ER PO SCH (10:14)
[2022-09-20] MEDS: FAMOTIDINE 20 MG TABLET PO SCH ×2 (10:14→22:23)
[2022-09-20] MEDS: DRONABINOL 2.5 MG CAPSULE PO SCH (16:34)
[2022-09-20] MEDS: DIVALPROEX NA *ER* EXTEND REL 500 MG TABLET.SA (FP) PO SCH (22:22)
[2022-09-21] MEDS: LEVOTHYROXINE NA 100 MCG TABLET (FP) PO SCH ×2 (07:10→07:21)
[2022-09-21] MEDS: QUEtiapine FUMARATE 50 MG TABLET PO SCH ×4 (07:10→23:10)
[2022-09-21] MEDS: clonazePAM 0.25 MG ODT TABLETS SL SCH ×4 (07:10→23:45)
[2022-09-21] MEDS: POLYETHYLENE GLYCOL (HEALTHYLAX) 3350 17 GM PACKET PO SCH ×3 (07:10→23:10)
[2022-09-21 09:43] VITALS: RESP 18
[2022-09-21] MEDS: PANTOPRAZOLE 20 MG TABLET PO SCH (09:45)
[2022-09-21] MEDS: MULTIVITAMINS (DAILY MVI) TABLET (FP) PO SCH (09:45)
[2022-09-21] MEDS: FAMOTIDINE 20 MG TABLET PO SCH ×3 (09:45→23:44)
[2022-09-21] MEDS: ENOXAPARIN NA (PORCINE) 80 MG/0.8 ML DISP.SYRIN SQ SCH ×3 (09:46→23:46)
[2022-09-21] MEDS: NYSTATIN POWDER 100,000 UNITS/GM - 15 GM TOPICAL POWDER TP SCH ×2 (09:46→23:44)
[2022-09-21] MEDS: LITHIUM CARBONATE 450 MG TABLET.ER PO SCH (09:46)
[2022-09-21] MEDS ORDERED: DRONABINOL 2.5 MG CAPSULE PO SCH (16:30)
[2022-09-21] MEDS ORDERED: DIVALPROEX NA *ER* EXTEND REL 500 MG TABLET.SA (FP) PO SCH (22:00)
[2022-09-21] MEDS ORDERED: MOMETASONE FUROATE TP SCH (22:00)
[2022-09-22] MEDS: QUEtiapine FUMARATE 50 MG TABLET PO SCH ×3 (06:49→15:04)
[2022-09-22] MEDS: clonazePAM 0.25 MG ODT TABLETS SL SCH ×3 (06:49→15:04)
[2022-09-22] MEDS: LEVOTHYROXINE NA 100 MCG TABLET (FP) PO SCH ×2 (06:49→06:54)
[2022-09-22] MEDS: POLYETHYLENE GLYCOL (HEALTHYLAX) 3350 17 GM PACKET PO SCH ×2 (06:50→13:48)
[2022-09-22] MEDS ORDERED: LITHIUM CARBONATE 450 MG TABLET.ER PO SCH (10:00)
[2022-09-22] MEDS ORDERED: PANTOPRAZOLE 20 MG TABLET PO SCH (10:00)
[2022-09-22] MEDS ORDERED: MULTIVITAMINS (DAILY MVI) TABLET (FP) PO SCH (10:00)
[2022-09-22] MEDS: ENOXAPARIN NA (PORCINE) 80 MG/0.8 ML DISP.SYRIN SQ SCH (10:10)
[2022-09-22] MEDS: FAMOTIDINE 20 MG TABLET PO SCH (10:10)
[2022-09-22] MEDS: NYSTATIN POWDER 100,000 UNITS/GM - 15 GM TOPICAL POWDER TP SCH (10:17)
[2022-09-22 14:43] VITALS: BP 137/89; PULSE 96; TEMP 98
== END 2022-09-22 16:58 | disposition home or self-care (01) | DRG 70 ==
LOC: JER 11:26 → JERBED 17:56 → J7W 09-14 09:48 → J4W 09-16 15:45 → J6S 09-21 12:41
PROVIDERS: ADMIT Internal Medicine; ATTEND Internal Medicine
DX: G93.41 Metabolic encephalopathy (principal); I26.99 Other pulmonary embolism without acute cor pulmonale; F31.10 Bipolar disorder, current episode manic without psychotic features, unspecified; R79.89 Other specified abnormal findings of blood chemistry; R62.7 Adult failure to thrive; E03.9 Hypothyroidism, unspecified
CPT/HCPCS: 0241U-QW; 36415; 70450-TC; 71045-TC-FY; 71275-TC; 74177-TC; 80053; 81003; 82140; 82962; 83605; 83735; 84100; 84443; 85025; 85027; 85379; 85610; 85730; 87086; 93005; 93010; 93306-TC; 93970-TC; 99285-25; Q9967

== ENCOUNTER 2022-10-23 20:26 | Emergency (ER) | payer OTHER ==
[2022-10-23 20:38] VITALS: BP 128/85; PULSE 94; RESP 18; TEMP 97; BMI 28.3
== END 2022-10-23 22:39 | disposition home or self-care (01) ==
LOC: JERFT 20:26 → JER 20:26 → JERFT 22:39
DX: Z76.0 Encounter for issue of repeat prescription (principal)
CPT/HCPCS: 99281-25